=== PATIENT | male | born 1965 | race Caucasian/White ===

== ENCOUNTER 2020-03-23 23:45 | Emergency (ER) | payer OTHER, SELFPAY ==
[2020-03-23 23:43] VITALS: BP 153/99; PULSE 100; RESP 16; TEMP 36.7; O2SAT 94; BMI 29.0
--- NOTE | 2020-03-23 23:45 | HMH.EDGENADL ---
ED Disposition Clinical Impression: Drug overdose Qualifiers: Encounter type: initial encounter Injury intent: accidental or unintentional Qualified Code(s): T50.901A - Poisoning by unspecified drugs, medicaments and biological substances, accidental (unintentional), initial encounter Disposition: Home, Self-Care Condition on Discharge: Good Additional Instructions: Try to avoid illicit drug use in the future. Return if any new or recurrent symptoms. Referrals: PCP,No [Primary Care Provider] - - Critical Care Critical Care Time: No Attestation: On , the high probability of a clinically significant, sudden or life threatening deterioration of the following system(s) required my full and direct attention, intervention and personal management. The time I documented below is in addition to time spent performing reported procedures but includes the following listed in this critical care notation. Medical Decision Making - Medical Records Medical records reviewed: Yes: I reviewed the patient's medical records. - Adan Inquiry Pt receiving controlled substance: No Vital Signs: 03/23/20 23:43 03/24/20 00:43 03/24/20 01:13 Temperature 98.1 F Temperature Source Oral Pulse Rate [Left Radial] 100 H 91 H 88 Respiratory Rate 16 16 15 Blood Pressure [Right Arm] 153/99 H 156/101 H 152/106 H Blood Pressure Mean [Right Arm] 117 119 121 Blood Pressure Source [Right Arm] Automatic Cuff Automatic Cuff Automatic Cuff Blood Pressure Position [Right Arm] Sitting Sitting Sitting 02 Sat by Pulse Oximetry 94 L 95 94 L Oxygen Delivery Method Room Air Room Air Room Air 03/24/20 01:30 Temperature Temperature Source Pulse Rate [Left Radial] 89 Respiratory Rate Blood Pressure [Right Arm] 150/112 H Blood Pressure Mean [Right Arm] 124 Blood Pressure Source [Right Arm] Blood Pressure Position [Right Arm] 02 Sat by Pulse Oximetry 94 L Oxygen Delivery Method Room Air Medical Decision Narrative: Patient 54-year-old male presenting after reported overdose. Patient states he was snorting unknown substances earlier and per EMS and neighbor became somnolent. EMS tried to scanner operator some Narcan and did administer a small bit of the vial intranasally but then patient fought back. On arrival, no indication for Narcan administration as patient does protect his airway and has saturations greater than 90% with respirations greater than 60 breaths spontaneously. He will be observed for several hours here in the emergency department to ensure no desaturations/bradypnea and to ensure he returns to a baseline mental status. After several hours of observation, patient has had saturations greater than 92% on room air. No episodes of bradypnea. He is been able to eat and drink without difficulty and have a coherent conversation. He reiterates that he was at a green party and snorted some of his muscle relaxer and possible opioids. He has not required any redose of Narcan since his arrival. We did talk to his daughter who will be able to come pick him up from the emergency department. He ambulates without difficulty. Patient discharged with instructions to avoid abusing illicit drugs. He seems somewhat amenable to this strategy. He will return immediately if any new or worsening symptoms. Assessment: Opioid overdose Disposition: Home with follow-up General Adult HPI - General Stated complaint: OVERDOSE Time Seen by Provider: 03/23/20 23:45 - History of Present Illness HPI narrative: Patient 54-year-old male with history of polysubstance abuse presenting due to overdose. Per EMS, neighbor called as patient was at a green party earlier starting multiple medications and had some somnolence. On their arrival, patient was somnolent. Intranasal Narcan was administered with immediate improvement but patient still intermittently somnolent on arrival. Never apneic or hypoxic based on pulse ox. Patient on arrival still intermittent somnolent but sta
[2020-03-24] VITALS (10 sets, daily range): BP systolic 00–174; BP diastolic 00–112; PULSE 0–91; RESP 0–16; TEMP -17.7–0; O2SAT 93–96
--- NOTE | 2020-03-24 00:46 | PC.NURSE ---
PT IS RESTING WITH EYES CLOSED AT THIS TIME. MD AT BEDSIDE ASSESSING PTS ORIENTATION. PT RESPONDS TO VERBAL STIMULI BUT STILL REFUSES TO COOPERATE IN FURTHER ASSESSMENT. PT STATED LEAVE ME ALONE AND LET ME SLEEP. WILL CONTINUE TO MONITOR.
--- NOTE | 2020-03-24 01:18 | PC.NURSE ---
pt daughter named Brenda called to check on pt. with pt permission this nurse updated her on his condition and informed her that he was still too drowsy to be discharged. Brenda instructed staff to call her at this number when he was ready for discharge.
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
--- NOTE | 2020-03-24 03:26 | PC.NURSE ---
pt is awake in bed and oriented x 4 at this time. pt denies doing any drugs and is angry someone called EMS to bring him here. pt is demanding to leave. pt asked to demonstrate to staff that he can stand up and ambulate independently before discharge. pt refuses to stand at this time.
--- NOTE | 2020-03-24 05:01 | PC.NURSE ---
pt asked to speak to daughter on the phone to see if she would bring him a change of clothes when he picked her up. thus nurse called pt daughter back form him. pt daughter stated she would bring him clothes and agreed to speak to him. when this nurse handed him the phone the pt started yelling and cussing at the daughter and using aggressive language. pt hung up the phone on the daughter. daughter called back and stated she was no longer coming to get him
--- NOTE | 2020-03-24 05:11 | PC.NURSE ---
pt gave this nurse his mother in laws number and nephew but no answer
--- NOTE | 2020-03-24 05:20 | PC.NURSE ---
pt is standing at pt doorway, pacing aggressively.
--- NOTE | 2020-03-24 05:39 | PC.NURSE ---
pt refuses vitals at this time.
== END 2020-03-24 06:45 | disposition home or self-care (01) ==
PROVIDERS: Emergency Provider Emergency Medicine
DX: T40.2X1A Poisoning by other opioids, accidental (unintentional), initial encounter (principal); Y92.019 Unspecified place in single-family (private) house as the place of occurrence of the external cause
CPT/HCPCS: 99283